=== PATIENT | male | born 1995 ===

== ENCOUNTER 2016-12-06 17:37 | Emergency (ER) | payer OTHER ==
[2016-12-06 17:46] VITALS: BMI 32.1
[2016-12-06 17:49] VITALS: BP 127/85; PULSE 85; RESP 18; TEMP 98; O2SAT 98
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
--- NOTE | 2016-12-07 08:27 | RAD ---
Cervical spine three views History: Injury. Comparison: None available. Findings: Cervical spine visualized from C1 through C6. C7 vertebral body is only partially imaged. No prevertebral soft tissue swelling. No evidence of acute displaced fracture. Dens is suboptimally visualized but otherwise grossly preserved. Impression: Negative acute. If pain persists, consider MRI.
--- NOTE | 2016-12-07 08:29 | RAD ---
Right knee three views History: Injury. Comparison: None available. Findings: No evidence for acute displaced fracture or dislocation. Suggestion of a small suprapatellar joint effusion. Impression: Small suprapatellar joint effusion. If pain persists, consider MRI.
--- NOTE | 2016-12-07 08:42 | RAD ---
Lumbar spine three views History: Injury. Comparison: None available. Findings: Spine alignment maintained. Vertebral body heights are preserved. No evidence for acute displaced fracture dislocation. Impression: Negative acute. If pain persists, consider MRI.
== END 2016-12-06 20:08 | disposition home or self-care (01) ==
LOC: C.ER 17:37
DX: S16.1XXA Strain of muscle, fascia and tendon at neck level, initial encounter (principal); S39.012A Strain of muscle, fascia and tendon of lower back, initial encounter; S80.01XA Contusion of right knee, initial encounter; V43.52XA Car driver injured in collision with other type car in traffic accident, initial encounter; Y92.414 Local residential or business street as the place of occurrence of the external cause; Z87.891 Personal history of nicotine dependence

== ENCOUNTER 2018-05-30 16:11 | Emergency (ER) | payer MEDICAID, OTHER | END 2018-05-30 18:06 | disposition home or self-care (01) | LOC: C.ER 16:11 ==